=== PATIENT | female | born 1940 | race Two or more races ===

== ENCOUNTER 2019-04-25 06:20 | Day surgery (SDC) | payer OTHER ==
[~2019-04-25] VITALS: Ht 152.4 cm; Wt 59.9 kg
[~2019-04-25 06:20] MED LIST: AMLO5TAB15 PO; ASPI-404 PO; ATOR40TA52 PO; B-COTAB59 PO; CALC1TAB64 PO; CETI1TAB36 PO; CHOL200021 PO; ESTR10TA5 VA; FLUT1SPR5; FOLI1TAB6 PO; GABA300C10 PO; LACTCAP35 OR; LEVO75TA6 PO; METO-169 PO; VITA400T4 PO
[2019-04-25] MEDS ORDERED: ceFAZolin 1GM/50ML 50 ML IV ONE ×2 (07:02→07:13)
[2019-04-25] MEDS ORDERED: PROPOFOL 10 MG/ML 20 ML IV ONE (07:24)
[2019-04-25] MEDS ORDERED: MIDAZOLAM HCL 1MG/1ML-2 ML VIAL ONE (07:24)
[2019-04-25] MEDS ORDERED: fentaNYL CITRATE 100 MCG/2 ML VL ONE (07:24)
[2019-04-25] MEDS ORDERED: DexAMETHasone SOD PHOS 10MG/1ML VIAL INJ ONE (07:24)
[2019-04-25] MEDS ORDERED: KETOROLAC TROMETH 30 MG/ML 1ML VIAL ONE (07:24)
[2019-04-25] MEDS ORDERED: LABETALOL HCL 5 MG/ML 4ML SYRINGE IV PRN (08:15)
[2019-04-25] MEDS ORDERED: MORPHINE SULFATE 4 MG/ML SYR/VIAL IV PRN ×2 (08:15)
[2019-04-25] MEDS ORDERED: ePHEDrine SULFATE 50 MG/ML AMP IV PRN (08:15)
[2019-04-25] MEDS ORDERED: KETOROLAC TROMETH 30 MG/ML 1ML VIAL IV ONE (08:15)
[2019-04-25] MEDS ORDERED: MIDAZOLAM HCL 1MG/1ML-2 ML VIAL IV PRN (08:15)
[2019-04-25] MEDS ORDERED: ONDANSETRON HCL 4 MG/2 ML VIAL IV PRN (08:15)
[2019-04-25 08:47] VITALS: BP 172/74
== END 2019-04-25 08:52 | disposition home or self-care (01) ==
LOC: SUR 06:20
PROVIDERS: ATTEND Orthopaedic Surgery Adult Reconstructive Orthopaedic Surgery
DX: G56.01 Carpal tunnel syndrome, right upper limb (principal); E03.9 Hypothyroidism, unspecified; I10 Essential (primary) hypertension; I25.10 Atherosclerotic heart disease of native coronary artery without angina pectoris; E78.5 Hyperlipidemia, unspecified; Z88.2 Allergy status to sulfonamides; Z79.2 Long term (current) use of antibiotics; Z79.899 Other long term (current) drug therapy; Z98.890 Other specified postprocedural states; Z98.49 Cataract extraction status, unspecified eye; Z95.818 Presence of other cardiac implants and grafts
CPT/HCPCS: 29848; J0690; J1100; J1885; J2250; J2405; J2704; J3010